=== PATIENT | male | born 1945 | race Caucasian/White ===

== ENCOUNTER 2018-08-30 09:51 | Emergency (ER) | payer MEDICARE, OTHER ==
[~2018-08-30] VITALS: Ht 185.4 cm; Wt 99.8 kg
[~2018-08-30 09:51] MED LIST: NORCO 5-325 TA1 EACH PO; ZOFRAN 4 MG ORAL4 MG PO
[2018-08-30 11:20] VITALS: BP 142/78
== END 2018-08-30 11:21 | disposition home or self-care (01) ==
LOC: M.ERS 09:51
DX: S06.0X0A Concussion without loss of consciousness, initial encounter (principal); S01.01XA Laceration without foreign body of scalp, initial encounter; Z96.651 Presence of right artificial knee joint; W01.0XXA Fall on same level from slipping, tripping and stumbling without subsequent striking against object, initial encounter; Y93.89 Activity, other specified; Y92.89 Other specified places as the place of occurrence of the external cause; Y99.8 Other external cause status

== ENCOUNTER 2018-09-08 11:32 | Emergency (ER) | payer MEDICARE, OTHER ==
[~2018-09-08] VITALS: Ht 182.9 cm; Wt 95.3 kg
[2018-09-08 11:51] VITALS: BP 142/64
== END 2018-09-08 11:51 | disposition home or self-care (01) ==
LOC: M.ERS 11:32
DX: S01.01XD Laceration without foreign body of scalp, subsequent encounter (principal); Z96.651 Presence of right artificial knee joint; X58.XXXD Exposure to other specified factors, subsequent encounter